=== PATIENT | female | born 1975 | race Caucasian/White ===

== ENCOUNTER 2019-09-02 22:33 | Emergency (ER) | payer BC ==
[~2019-09-02] VITALS: Ht 175.3 cm; Wt 110.2 kg
--- NOTE | 2019-09-02 22:46 | NUR ---
ERMD at bedside for MSE
[2019-09-02 23:00] LABS: *BILIRUBIN,URIN NEGATIVE (NEGATIVE); *CLARITY,URINE CLEAR (CLEAR); *COLOR,URINE YELLOW (YELLOW); *KETONES,URINE NEGATIVE (NEGATIVE); *UROBILINOGEN,URINE 0.2 E.U./dl (NORMAL); LEUKOCYTE ESTERASE ,URINE NEGATIVE (NEGATIVE); NITRITE, URINE NEGATIVE (NEGATIVE); UGLUCOSE NEGATIVE (NEGATIVE)
[2019-09-02 23:05] LABS: *BLOOD, URINE TRACE (NEGATIVE)
[2019-09-02 23:07] LABS: *URINE HCG, QUAL NEGATIVE (NEGATIVE); RBC,URINE 0-3 /HPF (0-3); WBC,URINE 0-3 /HPF (0-3)
[2019-09-02 23:08] LABS: BACTERIA,URINE NONE SEEN /HPF (NONE SEEN); SQUAMOUS EPITHELIAL CELL,UR FEW /HPF (NONE SEEN)
--- NOTE | 2019-09-02 23:26 | NUR ---
Patient transported to CT in stable condition.
--- NOTE | 2019-09-02 23:33 | NUR ---
Patient back in room from CT.
[2019-09-03] MEDS ORDERED: LEVOFLOXACIN 750 MG TABLET PO ONE
[2019-09-03] MEDS ORDERED: LEVOFLOXACIN 750 MG TABLET ONE (00:01)
--- NOTE | 2019-09-03 00:07 | NUR ---
Patient discharged to home in stable conditon. Written and verbal after care instructions given. Patient verbalizes understanding of instructions. Patient ambulated with stable gait.
[2019-09-03 00:09] VITALS: BP 132/71
== END 2019-09-03 00:11 | disposition home or self-care (01) ==
LOC: ER 22:33
DX: J18.1 Lobar pneumonia, unspecified organism (principal); R10.12 Left upper quadrant pain; Z90.710 Acquired absence of both cervix and uterus
CPT/HCPCS: 84703; A4663